=== PATIENT | male | born 1975 | race Caucasian/White ===

== ENCOUNTER 2017-08-15 15:11 | Emergency (ER) | payer OTHER ==
[~2017-08-15] VITALS: Ht 188 cm; Wt 84.7 kg
[~2017-08-15 15:11] MED LIST: CIPR1TAB11 PO; CLX/20 PO; IBUP-1105 PO; OXYC5TAB PO; SULF800T23 PO
[2017-08-15 15:15] VITALS: TEMP 36.9; Ht 188 cm; Wt 84.7 kg
[2017-08-15] MEDS ORDERED: DEXAMETHASONE SOD INJ 4 MG/ML VIAL IM STA (15:47)
[2017-08-15] MEDS ORDERED: CYCLOBENZAPRINE HCL 10 MG TAB PO STA (15:47)
[2017-08-15] MEDS ORDERED: HYDROmorphone INJ 2 MG/ML SYR/VIAL IM ONE (16:00)
[2017-08-15] MEDS ORDERED: KETOROLAC TROMETHAMINE 60 MG/2 ML VIAL IM ONE (16:00)
--- NOTE | 2017-08-15 16:56 | DIAGNOSTIC IMAGING REPORT ---
L-SPINE MIN 4 VIEWS ROUTINE HISTORY: 41 years-old Male LBP radiating down R leg acute low back pain with radiation into the right lower extremity. COMPARISON: Lumbar spine radiographs 04/21/2013 TECHNIQUE: 5 views of the lumbar spine FINDINGS: There is 16 degrees convex left curvature of the lumbar spine measured from T12-L4. No acute fracture or subluxation. Mild anterior wedging is again seen involving the T12 and L1 vertebral bodies which is unchanged and may reflect remote trauma or physiologic changes. Mild intervertebral disc space narrowing at L5-S1, unchanged. Mild facet arthropathy is also seen at this interspace. IMPRESSION: 1. No acute fracture or subluxation. 2. Mild intervertebral disc space narrowing and facet arthropathy redemonstrated at L5-S1. 3. 16 degrees convex left curvature of the lumbar spine. The above report was generated using voice recognition software. It may contain grammatical, syntax or spelling errors. Electronically signed by: Stan Kevin M.D. 08/15/2017 4:54 PM Dictated Date/Time: 08/15/2017 4:52 PM
[2017-08-15] MEDS ORDERED: OXYCODONE HCL IR 5 MG TAB (IMMEDIATE RELEASE) PO STA (17:24)
[2017-08-15] MEDS ORDERED: CYCL10TA6 PO (17:26)
[2017-08-15] MEDS ORDERED: IBUP-1451 PO (17:26)
[2017-08-15] MEDS ORDERED: OXYC1TAB3 PO (17:26)
[2017-08-15] MEDS ORDERED: METH4PAK PO (17:26)
--- NOTE | 2017-08-15 17:27 | EMERGENCY ROOM VISIT NOTE ---
History First contact with patient: 15:27 Chief Complaint: BACK PAIN Stated Complaint: SCIATIC PAIN/LOWER BACK History of Present Illness The patient is a 41 year old male who presents to the Emergency Room with complaints of severe low back pain radiating down his right leg. This has been an ongoing problem for this patient. He has had chronic back pain for approximately 10 years. He went to his primary care physician who suggested physical therapy. He has been going to physical therapy with no relief. He has been taking ibuprofen 800 mg at home with minimal relief. He denies any new injury. He denies any weakness. He does have numbness in the right foot. No urinary or bowel incontinence. No saddle anesthesias. Review of Systems 6 system review negative. Please see pertinent positives in the history of present illness section. Past Medical/Surgical History Medical Problems: (1) Chronic back pain (2) Congenital postural scoliosis (3) Depression with anxiety (4) Open wound of left hand Surgical Problems: (1) H/O arthroscopic knee surgery (2) Left humerus pinned (3) S/P wisdom tooth extraction History of staph infection Family History Cardiac disorder MGF Hypertension PGM Social History Smoking Status: Current Every Day Smoker Alcohol Use: occasionally Drug Use: marijuana Marital Status: in relationship Housing Status: lives with family Occupation Status: employed Current/Historical Medications Scheduled Citalopram (Citalopram Hydrobromide), 10-20 MG PO DAILY Cyclobenzaprine Hcl (Flexeril), 10 MG PO TID Ibuprofen Tab (Motrin), 1 TAB PO TID Methylprednisolone (Medrol Dosepak), 0 PO DAILY Scheduled PRN Oxycodone Ir (Roxicodone Ir), 1-2 TAB PO Q4H PRN for Pain Physical Exam Vital Signs Date Time Temp Pulse Resp B/P (MAP) Pulse Ox O2 Delivery O2 Flow Rate FiO2 08/15/17 17:33 73 20 145/97 98 Room Air 08/15/17 15:15 36.9 85 18 129/78 98 Room Air Physical Exam VITALS: Vitals are noted on the nurse's note and reviewed by myself. Vital signs stable. GENERAL: 41-year-old male, in obvious discomfort, SKIN: The skin was without rashes, erythema, edema, or bruising. HEAD: Normocephalic atraumatic. VITALS: Vitals are noted on the nurse's note and reviewed by myself. Vital signs stable. GENERAL: 41-year-old male, in no acute distress, nondiaphoretic, well-developed well-nourished. SKIN: The skin was without rashes, erythema, edema, or bruising. HEAD: Normocephalic atraumatic. MUSCULOSKELETAL: Tenderness to palpation over the lumbar spinous processes. Right SI joint tenderness. Positive straight leg test on the right. Muscle spasms in the right paraspinous muscles Strength 5/5 throughout. NEURO: Patient was alert and oriented to person place and time. Normal sensation to touch. No focal neurological deficits. Medical Decision & Procedures ER Provider Diagnostic Interpretation: IMPRESSION: 1. No acute fracture or subluxation. 2. Mild intervertebral disc space narrowing and facet arthropathy redemonstrated at L5-S1. 3. 16 degrees convex left curvature of the lumbar spine. Medications Administered Medications (Trade) Dose Ordered Sig/Regan Route Start Time Stop Time Status Last Admin Dose Admin Hydromorphone HCl (Dilaudid Inj) 2 mg ONE ONCE IM 08/15/17 16:00 08/15/17 16:01 DC 08/15/17 16:02 2 MG Ketorolac Tromethamine (Toradol Inj) 60 mg ONE ONCE IM 08/15/17 16:00 08/15/17 16:01 DC 08/15/17 16:01 60 MG Dexamethasone Sodium Phosphate (Decadron Inj) 10 mg NOW STAT IM 08/15/17 15:47 08/15/17 15:54 DC 08/15/17 16:01 10 MG Cyclobenzaprine HCl (Flexeril Tab) 10 mg NOW STAT PO 08/15/17 15:47 08/15/17 15:54 DC 08/15/17 16:02 10 MG Oxycodone HCl (Roxicodone Immediate Rel Tab) 5 mg NOW STAT PO 08/15/17 17:24 08/15/17 17:26 DC 08/15/17 17:32 5 MG ED Course The patient was seen and examined He was given Dilaudid 2 mg, Toradol 60 mg, Decadron 10 mg IM. He was given Flexeril 10 mg by mouth. Imaging was performed and reviewed. Upon evaluation, the patient was feeling better. He was given 1 additional oxycodone for pain. We discussed his imaging. He voiced understanding. Discharge instructions were reviewed, and he was discharged in good condition. Medical Decision Differential diagnosis: Spine fracture, ligamentous injury, subluxation, spondylolisthesis, spondylosis, herniated disc, contusion, muscle spasm This patient is a 41-year-old male presents to the emergency department with lower back pain radiating to his right leg. This is chronic. No new injury. No signs of cauda equina syndrome. His imaging is consistent with DJD and scoliosis of the lumbar spine. This is likely causing his symptoms. He was medicated in the emergency department with good pain relief. He was given a referral to Dr. Jeff. He will return to the emergency department with any new or worsening symptoms Impression Primary Impression: Chronic back pain Departure Information Dispostion Home / Self-Care Condition FAIR Prescriptions Methylprednisolone (MEDROL DOSEPAK) 4 Mg Yonatan 0 PO DAILY, #1 PKT Prov: Rhiannon Lewis PA-C 08/15/17 Cyclobenzaprine Hcl (FLEXERIL) 10 Mg Tab 10 MG PO TID for Muscle Spasms, #30 TAB Prov: Rhiannon Lewis PA-C 08/15/17 Ibuprofen Tab (MOTRIN) 800 Mg Tab 1 TAB PO TID for 10 Days, #30 TAB Prov: Rhiannon Lewis PA-C 08/15/17 Oxycodone Ir (Roxicodone Ir) 5 Mg Tab 1-2 TAB PO Q4H Y for Pain, #20 TAB For Initial Treatment Prov: Rhainnon Lewis PA-C 08/15/17 Referrals Silas Spain M.D. (MEDICAL) (PCP) Levi Jeff D.O. Patient Instructions My [facility] Additional Instructions Tylenol and ibuprofen for pain Ibuprofen 800 mg and/or Tylenol 1000 mg every 8 hours. You may also alternate these medications for more effective pain relief: Ibuprofen --4 HRS--> Tylenol --4 HRS--> ibuprofen --4 HRS--> Tylenol .... Oxycodone for severe pain Oxycodone Immediate Release (OxyIR) 5mg: Take 1-2 pills every four hours for pain. Avoid alcohol, operating machinery or dangerous equipment, working on ladders or roofs, DRIVING, or situations where being under the influence may be dangerous. It is recommended to use an [id number] stool softener such as Colace, 100mg twice daily while taking this medication to avoid constipation. Flexeril every 8 hours as needed for muscle spasms. Please do not drink alcohol or drive or taking this medication. Please call Dr. Jeff tomorrow morning for a follow-up appointment. Ice over the lower back over the next 48 hours. Lying on a hard surface may help with the pain. No strenuous activity until your back is feeling better Return to the emergency department if you have any of the following symptoms: -Problems with urination -Weakness in your legs -Chest pain -Shortness of breath -Worsening pain Please follow-up with your primary care physician next 2-3 days.
[2017-08-15 17:33] VITALS: BP 145/97; PULSE 73; O2SAT 98
== END 2017-08-15 18:00 | disposition home or self-care (01) ==
LOC: C.EDB 15:13 → C.EDD 18:00
DX: M54.5 Low back pain (principal); M41.9 Scoliosis, unspecified; Z82.49 Family history of ischemic heart disease and other diseases of the circulatory system; F17.200 Nicotine dependence, unspecified, uncomplicated; F12.90 Cannabis use, unspecified, uncomplicated

== ENCOUNTER → 2017-08-22 | Outpatient (CLI) | payer OTHER ==
[~2017-08-22] MED LIST changes: -CIPR1TAB11 PO; +CYCL10TA6 PO; -IBUP-1105 PO; +IBUP-1451 PO; +METH4PAK PO; +OXYC1TAB3 PO; -OXYC5TAB PO; -SULF800T23 PO
--- NOTE | 2017-08-22 16:07 | DIAGNOSTIC IMAGING REPORT ---
MRI OF THE LUMBAR SPINE WITHOUT CONTRAST CLINICAL HISTORY: Acute right-sided low back pain with right-sided sciatica. COMPARISON STUDY: Lumbar spine radiographs August 15, 2017. TECHNIQUE: Utilizing a 1.5 Radha magnet and dedicated coil, multiplanar, multiecho imaging of the lumbar spine was performed without IV contrast. FINDINGS: For purposes of numbering on this exam, the L5-S1 disc space is assigned to axial image 23 of 25. There is mild levoscoliosis of the lumbar spine. Conus terminates at the mid L1 level. There is no intracanalicular mass or fluid collection. Paravertebral soft tissues are unremarkable. There is no suspicious marrow replacement. A Schmorl's node along the superior endplate of L2 is noted. A few additional Schmorl's nodes are noted. L1-2: There is a small right paracentral disc protrusion with disc bulge. There is mild narrowing of the right lateral recess. Central canal and neural foramen are patent. L2-3: The central canal and neural foramen are patent. L3-4: The central canal and neural foramen are patent. L4-5: There is mild disc bulge, ligamentous hypertrophy and facet arthrosis. The central canal are patent. There is mild narrowing of both neural foramen. L5-S1: There is disc bulge with a right paracentral disc protrusion that results in moderate narrowing of the right lateral recess with mass effect upon the descending right S1 nerve root. The neural foramen are patent. IMPRESSION: 1. Right paracentral disc protrusion at L5-S1 that results in moderate narrowing of the right lateral recess with mass effect upon the descending right S1 nerve root. 2. Disc bulge with small right paracentral disc protrusion at L1-L2. 3. Mild levoscoliosis of the lumbar spine. Electronically signed by: Donovan Duran M.D. 08/22/2017 4:06 PM Dictated Date/Time: 08/22/2017 4:00 PM
== END | disposition home or self-care (01) ==
LOC: C.MRIBC 15:18
PROVIDERS: ATTEND Family Medicine
DX: M51.37 Other intervertebral disc degeneration, lumbosacral region (principal); M41.116 Juvenile idiopathic scoliosis, lumbar region; M54.5 Low back pain; G89.29 Other chronic pain; M54.41 Lumbago with sciatica, right side